=== PATIENT | female | born 1990 | race Caucasian/White ===

== ENCOUNTER 2024-12-21 04:30 | Inpatient (IN) | payer OTHER ==
[2024-12-21] MEDS: LACTATED RINGERS SOLUTION 1,000 ML/1,000 ML INFUS.BAG IV SCH (05:15)
[2024-12-21] MEDS: CITRIC ACID/SODIUM CITRATE 30 ML UNIT-DOSE CUP PO ONE (05:30)
[2024-12-21 05:35] VITALS: BMI 29.5
[2024-12-21] MEDS ORDERED: morphine SULFATE/PF 1 MG/2 ML (2cc Syringe - QUVA) ONE (05:39)
[2024-12-21] MEDS ORDERED: PROPOFOL 20 ML ONE (06:11)
[2024-12-21] MEDS ORDERED: FENTANYL CITRATE/PF 50 MCG/ML VIAL ONE ×4 (06:14→06:53)
[2024-12-21] MEDS ORDERED: MIDAZOLAM HCL 2 MG/2 ML SINGLE DOSE VIAL ONE (06:16)
[2024-12-21] MEDS ORDERED: OXYTOCIN 20 UNITS in 0.9% NS 20 UNIT/1,000 ML INFUS.BAG IV ONE (06:53)
[2024-12-21] MEDS: OXYTOCIN 20 UNITS in 0.9% NS 20 UNIT/1,000 ML INFUS.BAG IV SCH (07:00)
[2024-12-21] MEDS ORDERED: IBUPROFEN 800 MG/8 ML IJ IVPB PRN (07:19)
[2024-12-21] MEDS ORDERED: METHYLERGONOVINE MALEATE 0.2 MG/1 ML AMP IM PRN (07:19)
[2024-12-21] MEDS: ACETAMINOPHEN 1000 MG/100 ML BAG IVPB PRN (07:44)
[2024-12-21] MEDS ORDERED: ACETAMINOPHEN INJECTION 100 ML ONE (07:45)
[2024-12-21] MEDS: PRENATAL VITAMINS W/ FOLIC ACID TABLET (FP) PO SCH (11:29)
[2024-12-21] MEDS ORDERED: oxyCODONE HCL 5 MG TABLET PO PRN ×2 (19:19)
[2024-12-21] MEDS: IBUPROFEN 600 MG TABLET (FP) PO PRN (22:03)
[2024-12-22] MEDS: SIMETHICONE 80 MG TAB.CHEW (FP) PO PRN (05:37)
[2024-12-22 05:49] VITALS: RESP 18
[2024-12-22] MEDS ORDERED: BISACODYL 10 MG SUPP.RECT RC PRN (07:19)
[2024-12-22 07:33] LABS: BASOPHILS # 0.03 x10^3/uL (0.01-0.08); MEAN PLT VOLUME 13.3 fl (9.4-12.3); MONOCYTE # 0.72 x10^3/uL (0.24-0.86)
[2024-12-22 07:35] LABS: ABSOLUTE IMMATURE GRANULOCYTES 0.08 x10^3/uL (0.0-0.031); EOSINOPHIL % 0.1 % (0.7-5.8); EOSINOPHILS # 0.02 x10^3/uL (0.04-0.36); HEMOGLOBIN 9.6 g/dL (11.2-15.7); MCHC 33.1 g/dl (32.2-35.5); MEAN CELL VOLUME 90.9 fl (79.4-94.8); MONOCYTE % 4.9 % (4.7-12.5); PLATELET COUNT 94 x10^3/uL (182-369); RDW 13.1 % (12.1-16.8)
[2024-12-22] MEDS: ACETAMINOPHEN 325 MG TABLET (FP) PO PRN (10:05)
[2024-12-22] MEDS: FERROUS SO4 325 MG TABLET (FP) PO SCH (10:06)
[2024-12-24] MEDS: SENNOSIDES/DOCUSATE COMBO (SENNA PLUS) TABLET (UD) PO PRN (17:02)
[2024-12-25 10:14] VITALS: BP 104/62; PULSE 76; TEMP 98.1
== END 2024-12-25 18:15 | disposition home or self-care (01) | DRG 540 ==
LOC: JLDR 04:30 → J3W 09:40
PROVIDERS: ADMIT Obstetrics & Gynecology; ATTEND Obstetrics & Gynecology
PROC: 10D00Z1 Extraction of Products of Conception, Low, Open Approach (ICD-10-PCS; principal; 2024-12-21)
DX: O34.211 Maternal care for low transverse scar from previous cesarean delivery (principal); Z3A.39 39 weeks gestation of pregnancy; Z37.0 Single live birth
CPT/HCPCS: 36415; 59409; 80053; 85025; 85610; 85730; 86780; 86803; 86850; 86900; 86901; 87340; 87389; 88307-TC; 94010; J0131